=== PATIENT | female | born 1995 | race Caucasian/White ===

== ENCOUNTER 2019-01-30 23:21 | Emergency (ER) | payer OTHER ==
[~2019-01-30] VITALS: Ht 165.1 cm; Wt 93.4 kg
[2019-01-30 23:30] VITALS: BP 133/92; Ht 165.1 cm; Wt 93.4 kg
== END 2019-01-30 23:54 | disposition home or self-care (01) ==
LOC: ED 23:21
DX: J02.9 Acute pharyngitis, unspecified (principal)

== ENCOUNTER 2019-07-29 16:35 | Emergency (ER) | payer OTHER ==
[~2019-07-29] VITALS: Ht 165.1 cm; Wt 93.9 kg
[2019-07-29 16:40] VITALS: Ht 165.1 cm; Wt 93.9 kg
[2019-07-29 21:20] LABS: BASOPHIL % 0 % (0-2); PLATELET COUNT 186 x10^3mcL (130-400); RED CELL DISTRIBUTION WIDTH 13.3 % (11.5-14.5)
[2019-07-29 21:22] LABS: CALCIUM 9.2 mg/dL (8.5-10.1); CARBON DIOXIDE 26.3 mmol/L (21-32); CHLORIDE SERUM 103 mmol/L (98-107); CREATININE SERUM 0.8 mg/dL (0.6-1.0); GFR1 > 60 mL/min; GLUCOSE SERUM 91 mg/dL (74-106); POTASSIUM SERUM 4.5 mmol/L (3.5-5.1); SODIUM SERUM 138 mmol/L (136-145)
[2019-07-29 21:29] LABS: ALKALINE PHOSPHATASE 87 U/L (46-116); ALT/SGPT 21 U/L (14-59); AST/SGOT 7 U/L (15-37); BILIRUBIN TOTAL 0.28 mg/dL (0.20-1.00); LIPASE 95 IU/L (73-393); TOTAL PROTEIN, SERUM 7.9 g/dL (6.4-8.2)
[2019-07-29 22:02] VITALS: BP 131/79
== END 2019-07-29 22:02 | disposition home or self-care (01) ==
LOC: ED 16:35
PROVIDERS: Emergency Medicine
DX: N39.0 Urinary tract infection, site not specified (principal)
CPT/HCPCS: 36415; J0500